=== PATIENT | male | born 1955 | race Caucasian/White ===

== ENCOUNTER 2021-05-18 07:07 | Outpatient (CLI) | payer BC | END 2021-05-18 07:08 | disposition home or self-care (01) | LOC: CSHNM 07:07 | PROVIDERS: ATTEND Internal Medicine Hematology & Oncology | DX: C64.9 Malignant neoplasm of unspecified kidney, except renal pelvis (principal); C78.39 Secondary malignant neoplasm of other respiratory organs; E27.8 Other specified disorders of adrenal gland; Z90.5 Acquired absence of kidney; R91.8 Other nonspecific abnormal finding of lung field; K86.9 Disease of pancreas, unspecified; C79.51 Secondary malignant neoplasm of bone | CPT/HCPCS: 71260; 74177; 78306; 82565; A9503 ==

== ENCOUNTER 2022-03-19 12:25 | Outpatient (CLI) | payer BC ==
[2022-03-19] MEDS ORDERED: Iopamidol 300 61% 100 ML VIAL FS ONE (13:17)
== END 2022-03-19 12:26 | disposition home or self-care (01) ==
LOC: CSHCT 12:25
PROVIDERS: ATTEND Internal Medicine Hematology & Oncology
DX: C64.9 Malignant neoplasm of unspecified kidney, except renal pelvis (principal); C78.39 Secondary malignant neoplasm of other respiratory organs; V18.0XXA Pedal cycle driver injured in noncollision transport accident in nontraffic accident, initial encounter; K86.89 Other specified diseases of pancreas; Z90.5 Acquired absence of kidney; E27.8 Other specified disorders of adrenal gland; R91.8 Other nonspecific abnormal finding of lung field
CPT/HCPCS: 71260; 74177; Q9967

== ENCOUNTER 2023-06-30 12:12 | Outpatient (CLI) | payer BC ==
[~2023-06-30 12:12] MED LIST: Iopamidol 300 61% 100 ML VIAL FS ONE
== END 2023-06-30 12:13 | disposition home or self-care (01) ==
LOC: CSHCT 12:12
PROVIDERS: ATTEND Internal Medicine Hematology & Oncology
DX: C64.9 Malignant neoplasm of unspecified kidney, except renal pelvis (principal); C78.39 Secondary malignant neoplasm of other respiratory organs; K86.89 Other specified diseases of pancreas
CPT/HCPCS: 71260; 74177; 82565; Q9967